=== PATIENT | male | born 1985 | race Caucasian/White ===

== ENCOUNTER 2016-12-04 18:43 | Emergency (ER) | payer SELFPAY ==
[~2016-12-04 18:43] MED LIST: DOLO10TA PO
[2016-12-04 18:45] VITALS: BP 162/100; PULSE 69; RESP 14; TEMP 98.1; O2SAT 96
[2016-12-04] MEDS ORDERED: CEPH-460 PO (20:07)
[2016-12-04] MEDS ORDERED: DICL50TA3 PO (20:07)
[2016-12-04] MEDS ORDERED: BACT800T5 PO (20:07)
--- NOTE | 2016-12-04 20:13 | PD ---
HPI Chief Complaint: Skin Problem Time Seen by Provider: 20:08 Travel History International Travel<30 days: No Contact w/Intl Traveler<30days: No Traveled to known affect area: No History of Present Illness HPI 31-year-old white male presents to emergency department with complains of a painful rash in his left groin which has been draining over last few days. He also goes on to state that he's been having pain in his right lower mandible where he had a broken tooth. He feels that he is developing abscess. He denies any fever or chills. No nausea vomiting. No abdominal pain. No dysuria or frequency. He denies any history of rashes in the past or abscess. He states that the rash in the groin started off as a few small pimples with whiteheads on them. They have subsequently open and draining. PFSH Past Medical History Narrative Medical Opiate dependence, suicide gesture Immunizations Current: Yes Tetanus Vaccination: < 5 Years Past Surgical History Surgical History: No Previous Surgery Social History Alcohol Use: Yes Tobacco Use: Yes Allergies-Medications (Allergen,Severity, Reaction): Coded Allergies: No Known Allergies (Unverified , 12/04/16) Reported Meds & Prescriptions Reported Meds & Active Scripts Active Diclofenac Sodium DR (Diclofenac Sodium) 50 Mg Tabdr 50 Mg PO TID Bactrim DS (Sulfamethoxazole-Trimethoprim) 800-160 Mg Tab 1 Tab PO BID Keflex (Cephalexin) 500 Mg Cap 500 Mg PO Q6H Review of Systems Except as stated in HPI: all other systems reviewed are Neg Physical Exam Narrative GENERAL: This is a well-nourished, well-developed patient, in no apparent distress. SKIN: Patient has an area of erythema, tenderness with open draining superficial abscess to the left pubic region. There is no fluctuance or pointing. The area measures approximately 3 x 3 cm. HEAD: Atraumatic. Normocephalic. EYES: PERRL, EOMI, no discharge or injection. No scleral icterus. EARS: Clear NOSE: Nasal turbinates appear normal. THROAT: Mucosa pink and moist. Airway patent. The patient has a large dental carry in tooth #29.. Complains of pain to percussion. No facial swelling. NECK: Trachea midline. supple, moves head freely. LUNGS: Clear to auscultation. CV: Regular in rhythm. ABDOMEN: Soft nontender. EXT: No clubbing cyanosis or edema. Data Data Last Documented VS Vital Signs Date Time Temp Pulse Resp B/P Pulse Ox O2 Delivery O2 Flow Rate FiO2 12/04/16 18:45 98.1 69 14 162/100 96 Room Air MDM Medical Decision Making Medical Screen Exam Complete: Yes Emergency Medical Condition: Yes Medical Record Reviewed: Yes Differential Diagnosis MDM: High Differential diagnoses: Abscess, folliculitis, cellulitis, lymphangitis, abrasion, contact dermatitis, dental caries, dental abscess Narrative Course The patient is given Keflex 500 mg by mouth, Anaprox DS, by mouth and Bactrim DS by mouth. This is left groin abscess, dental abscess Diagnosis Primary Impression: Abscess of left groin Additional Impression: Dental abscess Patient Instructions: General Instructions Additional Instructions: Rest. Elevation. Warm compresses. Daily wound care with soap, water and Neosporin. Saltwater gargles. Mcbee oil on cotton balls. Medications as directed. follow-up with a dentist as soon as possible. Follow-up with a primary care doctor in one week. Return to the ER for any problems. Med/Other Pt SpecificInfo: Prescription(s) given, Wound Care Scripts Diclofenac Sodium DR 50 Mg Tabdr50 Mg PO TID #21 TAB Prov:Alexis Balderrama MD 12/04/16 Sulfamethoxazole-Trimethoprim (Bactrim DS)800-160 Mg Tab1 Tab PO BID #20 TAB Prov:Alexis Balderrama MD 12/04/16 Cephalexin (Keflex)500 Mg Gnb181 Mg PO Q6H #40 CAP Prov:Alxeis Balderrama MD 12/04/16 Disposition: 01 DISCHARGE HOME Condition: Stable Parish Swenson Dec 04, 2016 20:13
[2016-12-04] MEDS ORDERED: NAPROXEN SODIUM 550 MG TAB PO ONE (20:30)
[2016-12-04] MEDS ORDERED: SULFAMETHOXAZOLE-TRIMETHOPRIM DS 800-160 MG TAB PO ONE (20:30)
[2016-12-04] MEDS ORDERED: CEPHALEXIN MONOHYDRATE 500 MG CAP PO ONE (20:30)
== END 2016-12-04 20:51 | disposition home or self-care (01) ==
LOC: NEPB 18:43
DX: L02.214 Cutaneous abscess of groin (principal); K04.7 Periapical abscess without sinus; Z72.0 Tobacco use
CPT/HCPCS: 99283

== ENCOUNTER 2016-12-30 19:32 | Emergency (ER) | payer SELFPAY ==
[~2016-12-30 19:32] MED LIST changes: +BACT800T5 PO; +CEPH-460 PO; +DICL50TA3 PO; -DOLO10TA PO
[2016-12-30 19:37] VITALS: BP 163/100; PULSE 107; RESP 18; TEMP 97.4; O2SAT 96
[2016-12-30 19:40] VITALS: PULSE 95; RESP 16; O2SAT 96
--- NOTE | 2016-12-30 19:42 | PD ---
HPI Chief Complaint: overdose Time Seen by Provider: 19:38 Travel History International Travel<30 days: No Contact w/Intl Traveler<30days: No History of Present Illness HPI Patient is a 31-year-old male with history of heroin IV drug abuse here with complaint of overdose. Patient states that he injected approximately $20 worth of heroin into his hand. Shortly thereafter friends found him altered and called EMS. EMS noted patient to be GCS 3, hypoventilating with pinpoint pupils. He was given 2 mg Narcan IM with improvement of his mental status is GCS 15. Patient states that he accidentally injected too much heroin. This is not a suicide attempt and he does not feel sad or depressed. Admits to having 2 beers this evening, otherwise denies any other coingestions. Patient's only complaint at this time is that he feels cold and requests water. [facility] Past Medical History Medical History: Denies Significant Hx Diminished Hearing: No Immunizations Current: Yes Social History Alcohol Use: Yes Tobacco Use: Yes Substance Use: Yes (IV drug abuse, opioids) Allergies-Medications (Allergen,Severity, Reaction): Coded Allergies: No Known Allergies (Unverified , 12/30/16) Reported Meds & Prescriptions Reported Meds & Active Scripts Active Review of Systems Except as stated in HPI: all other systems reviewed are Neg Physical Exam Narrative GENERAL: male appearing older than stated age in no acute distress SKIN: Warm and dry. Tract knight of varying ages on the veins of the dorsal hands bilaterally. HEAD: Atraumatic. Normocephalic. EYES: Pupils equal and round. No scleral icterus. No injection or drainage. ENT: No nasal bleeding or discharge. Mucous membranes pink and moist. NECK: Supple CARDIOVASCULAR: Borderline tachycardia with heart rate in the 90s to 100 100s, regular rhythm. No murmur appreciated. RESPIRATORY: No accessory muscle use. Clear to auscultation. Breath sounds equal bilaterally. GASTROINTESTINAL: Abdomen soft, non-tender, nondistended. MUSCULOSKELETAL: Moves all extremities normally NEUROLOGICAL: Awake and alert. GCS 15. No clonus or rigidity. Motor grossly within normal limits. Normal speech. PSYCHIATRIC: insight and judgment poor. Denies suicidal ideation, homicidal ideation, delusions or hallucinations. Data Data Last Documented VS Vital Signs Date Time Temp Pulse Resp B/P Pulse Ox O2 Delivery O2 Flow Rate FiO2 2/4/17 20:33 102 16 150/96 96 Nasal Cannula 3 12/30/16 19:37 97.4 Orders Iv Access Insert/Monitor (12/30/16 19:38) Ecg Monitoring (12/30/16 19:38) Oximetry (12/30/16 19:38) Sodium Chloride 0.9% Flush (Ns Flush) (12/30/16 19:45) MDM Medical Decision Making Medical Screen Exam Complete: Yes Emergency Medical Condition: Yes Medical Record Reviewed: Yes Differential Diagnosis 31-year-old male here with complaint of accidental heroin overdose, during recreational use. Presentation is classic for opioid overdose. He does admit to coingestions with alcohol tonight, but clinically is not intoxicated. Patient has had rapid reversal of his mentation with Narcan. Differential includes alcohol intoxication, electrolyte abnormality, and polysubstance abuse. Narrative Course Patient was placed on monitor. IV had been established per EMS. Blood glucose normal. EMS. Patient was monitored throughout his ED stay for 3 hours with no change in his mental status and was discharged home. Diagnosis Primary Impression: Heroin overdose Qualified Code: T40.1X1A - Heroin overdose, accidental or unintentional, initial encounter Referrals: [facility] for appointment Additional Instructions: Stop using drugs. Seek outpatient counseling for your substance abuse. Med/Other Pt SpecificInfo: No Change to Meds Disposition: 01 DISCHARGE HOME Condition: Stable Aarti Jett MD Dec 30, 2016 19:42
[2016-12-30] MEDS ORDERED: SODIUM CHLORIDE 0.9% FLUSH 5 ML FLUSH IVF PRN (19:45)
[2016-12-30 20:33] VITALS: BP 150/96; PULSE 102; RESP 16; O2SAT 96
== END 2016-12-30 23:07 | disposition home or self-care (01) ==
LOC: NEPE 19:32
DX: T40.1X1A Poisoning by heroin, accidental (unintentional), initial encounter (principal)

== ENCOUNTER 2017-07-12 23:45 | Emergency (ER) | payer SELFPAY ==
[~2017-07-12] VITALS: Ht 182.9 cm; Wt 100.0 kg
[2017-07-12 23:48] VITALS: BP 136/92; PULSE 117; RESP 18; TEMP 99
--- NOTE | 2017-07-12 23:57 | PD ---
HPI Chief Complaint: OD/ Ingestion Time Seen by Provider: 23:53 Travel History International Travel<30 days: No Contact w/Intl Traveler<30days: No Traveled to known affect area: No History of Present Illness HPI WAS AT A [facility] AND USED (SNORTED) HEROIN TONIGHT, APPARENTLY FRIENDS NOTICED THAT HE WAS NOT RESPONDING NORMAL AND TOOK HIM TO BATHROOM WHERE THEY SPLASHED HIM WITH WATER AND PATIENT "CAME TO" EMS ON SCENE DID NOT ADMINISTER NARCAN, PT WAS A/O X4, AND SPEAKING /ACTING NORMALLY PFSH Past Medical History Diminished Hearing: No Immunizations Current: Yes Social History Alcohol Use: Yes Tobacco Use: Yes Substance Use: Yes (IV drug abuse, opioids) Allergies-Medications (Allergen,Severity, Reaction): Coded Allergies: No Known Allergies (Unverified , 12/30/16) Reported Meds & Prescriptions Reported Meds & Active Scripts Active Review of Systems Except as stated in HPI: all other systems reviewed are Neg Physical Exam Narrative GENERAL: SKIN: Warm and dry. HEAD: Atraumatic. Normocephalic. EYES: Pupils equal and round. No scleral icterus. No injection or drainage. ENT: No nasal bleeding or discharge. Mucous membranes pink and moist. NECK: Trachea midline. No JVD. CARDIOVASCULAR: Regular rate and rhythm. RESPIRATORY: No accessory muscle use. Clear to auscultation. Breath sounds equal bilaterally. GASTROINTESTINAL: Abdomen soft, non-tender, nondistended. MUSCULOSKELETAL: Extremities without clubbing, cyanosis, or edema. No obvious deformities. NEUROLOGICAL: Awake and alert. No obvious cranial nerve deficits. Motor grossly within normal limits. Five out of 5 muscle strength in the arms and legs. Normal speech. PSYCHIATRIC: Appropriate mood and affect; insight and judgment normal. Data Data Last Documented VS Vital Signs Date Time Temp Pulse Resp B/P Pulse Ox O2 Delivery O2 Flow Rate FiO2 07/13/17 00:03 117 16 136/92 116 18 146/91 07/12/17 23:48 99.0 Orders Electrocardiogram (07/12/17 23:53) Chest, Single Ap (07/12/17 23:53) Orthostatic Vital Signs (07/12/17 23:53) Blood Glucose (07/12/17 23:53) MDM Medical Decision Making Medical Screen Exam Complete: Yes Emergency Medical Condition: Yes Medical Record Reviewed: Yes Interpretation(s) MILD SINUS TACH 110, NL INTERVALS, NO STEMI PATTERN Differential Diagnosis RECREATIONAL DRUG USE V HYPOGLYCEMIA V ARDS V DEHYDRATION Narrative Course NL ACCUCHECK, NEG ORTHOSTATIC, CXR NL, PATIENT WAS ADVISED TO AVOID DRUG USE Diagnosis Primary Impression: HEROIN USE Patient Instructions: General Instructions, Opioid Overdose (ED) Disposition: 01 DISCHARGE HOME Condition: Stable Nahid Mitchell MD Jul 12, 2017 23:57
[2017-07-13 00:03] VITALS: BP_SYST 136; BP_SYST 146; BP_DIAS 91; BP_DIAS 92; RESP 16; RESP 18
--- NOTE | 2017-07-13 00:48 | RADRPT ---
EXAM DATE/TIME: 07/13/2017 00:12 [facility] COMPARISON: No previous studies available for comparison. INDICATIONS : Chest pain and fluttering. MEDICAL HISTORY : None. SURGICAL HISTORY : None. ENCOUNTER: Initial ACUITY: 1 day PAIN SCORE: 8/10 LOCATION: Bilateral chest FINDINGS: A single view of the chest demonstrates the lungs to be symmetrically aerated without evidence of mas s, infiltrate or effusion. The cardiomediastinal contours are unremarkable. Osseous structures are intact. CONCLUSION: No acute cardiopulmonary process. Nolan Marcos MD on July 13, 2017 at 0:46 Board Certified Radiologist. This report was verified electronically.
[2017-07-13 01:57] VITALS: BP 120/82
--- NOTE | 2017-07-13 09:18 | EKG ---
Date Performed: 07/12/2017 Time Performed: 23:59:04 PTAGE: 32 years EKG: SINUS TACHYCARDIA POSSIBLE LEFT ATRIAL ENLARGEMENT ABNORMAL RHYTHM ECG Compared to prior tr acing no significant change PREVIOUS TRACING : 03/13/2015 21.27 DOCTOR: Sae Rasmussen Interpretating Date/Time 07/13/2017 09:16:42
== END 2017-07-13 01:59 | disposition home or self-care (01) ==
LOC: NEPE 23:45
DX: F11.90 Opioid use, unspecified, uncomplicated (principal); R00.0 Tachycardia, unspecified; R94.31 Abnormal electrocardiogram [ECG] [EKG]; Z72.0 Tobacco use
CPT/HCPCS: 71010; 93005

== ENCOUNTER 2017-11-02 12:30 | Emergency (ER) | payer SELFPAY ==
[~2017-11-02] VITALS: Ht 182.9 cm; Wt 104.0 kg
[2017-11-02 12:48] VITALS: BP 139/82; PULSE 92; RESP 16; TEMP 98.2; O2SAT 91
[2017-11-02] MEDS ORDERED: SODIUM CHLORIDE 0.9% FLUSH 10 ML FLUSH IVF PRN (13:00)
--- NOTE | 2017-11-02 13:04 | PD ---
HPI Chief Complaint: OD/ Ingestion Time Seen by Provider: 12:50 Travel History International Travel<30 days: No Contact w/Intl Traveler<30days: No Traveled to known affect area: No History of Present Illness HPI 32-year-old male presents to the emergency department after an overdose that occurred just prior to arrival. Patient states that he used IV heroin and had an unintentional overdose. EVAC gave this patient a dose of 0.8mg Narcan and Zofran which woke him up. States he used IV heroin approximately 10 AM this morning and does not know how long he was out. Currently patient denies fever or chills. Patient does feel "out of it". States he thinks he is urinary tract infection because his urine is orange. He denies dysuria or any other symptoms. Denies fever, chills, chest pain, shortness of breath, abdominal pain. Patient denies chronic medical issues or medication use. Denies any other illicit drugs at this time. PFSH Past Medical History Diminished Hearing: No Immunizations Current: Yes Social History Alcohol Use: Yes Tobacco Use: Yes Substance Use: Yes (IV drug abuse, opioids) Allergies-Medications (Allergen,Severity, Reaction): Coded Allergies: No Known Allergies (Unverified , 12/30/16) Reported Meds & Prescriptions Reported Meds & Active Scripts Active Review of Systems Except as stated in HPI: all other systems reviewed are Neg Physical Exam Narrative GENERAL: Well-developed well-nourished in mild distress SKIN: Focused skin assessment warm/dry. HEAD: Atraumatic. Normocephalic. EYES: Pupils equal and round. No scleral icterus. No injection or drainage. ENT: No nasal bleeding or discharge. Mucous membranes pink and moist. NECK: Trachea midline. No JVD. CARDIOVASCULAR: Regular rate and rhythm. No murmur appreciated. RESPIRATORY: No accessory muscle use. Clear to auscultation. Breath sounds equal bilaterally. GASTROINTESTINAL: Abdomen soft, non-tender, nondistended. Hepatic and splenic margins not palpable. MUSCULOSKELETAL: No obvious deformities. No clubbing. No cyanosis. No edema. NEUROLOGICAL: Awake and alert. No obvious cranial nerve deficits. Motor grossly within normal limits. Normal speech. PSYCHIATRIC: Appropriate mood and affect; insight and judgment normal. Data Data Last Documented VS Vital Signs Date Time Temp Pulse Resp B/P (MAP) Pulse Ox O2 Delivery O2 Flow Rate FiO2 12/8/17 15:54 11/02/17 15:53 71 16 100 Room Air 11/02/17 13:19 2.00 11/02/17 12:48 98.2 Orders Orders Electrocardiogram (11/02/17 12:48) Basic Metabolic Panel (Bmp) (11/02/17 12:48) Complete Blood Count With Diff (11/02/17 12:48) Iv Access Insert/Monitor (11/02/17 12:48) Ecg Monitoring (11/02/17 12:48) Oximetry (11/02/17 12:48) Sodium Chloride 0.9% Flush (Ns Flush) (11/02/17 13:00) Drug Screen, Random Urine (11/02/17 12:48) Alcohol (Ethanol) (11/02/17 12:48) Chest, Single Ap (11/02/17 ) Urinalysis - C+S If Indicated (11/02/17 12:59) Ed Discharge Order (11/02/17 15:17) Electrocardiogram (11/02/17 13:27) Labs Laboratory Tests Test 11/02/17 12:50 11/02/17 14:20 White Blood Count 5.2 TH/MM3 Red Blood Count 3.80 MIL/MM3 Hemoglobin 13.2 GM/DL Hematocrit 39.1 % Mean Corpuscular Volume 102.7 FL Mean Corpuscular Hemoglobin 34.8 PG Mean Corpuscular Hemoglobin Concent 33.9 % Red Cell Distribution Width 14.4 % Platelet Count 176 TH/MM3 Mean Platelet Volume 8.0 FL Neutrophils (%) (Auto) 44.6 % Lymphocytes (%) (Auto) 36.4 % Monocytes (%) (Auto) 13.2 % Eosinophils (%) (Auto) 5.4 % Basophils (%) (Auto) 0.4 % Neutrophils # (Auto) 2.3 TH/MM3 Lymphocytes # (Auto) 1.9 TH/MM3 Monocytes # (Auto) 0.7 TH/MM3 Eosinophils # (Auto) 0.3 TH/MM3 Basophils # (Auto) 0.0 TH/MM3 CBC Comment DIFF FINAL Differential Comment Blood Urea Nitrogen 12 MG/DL Creatinine 0.75 MG/DL Random Glucose 118 MG/DL Calcium Level 8.4 MG/DL Sodium Level 139 MEQ/L Potassium Level 3.4 MEQ/L Chloride Level 105 MEQ/L Carbon Dioxide Level 26.0 MEQ/L Anion Gap 8 MEQ/L Estimat Glomerular Filtration Rate 120 ML/MIN Ethyl Alcohol Level 35 MG/DL Urine Color YELLOW Urine Turbidity CLEAR Urine pH 6.0 Urine Specific [place] 1.021 Urine Protein 30 mg/dL Urine Glucose (UA) NEG mg/dL Urine Ketones NEG mg/dL Urine Occult Blood NEG Urine Nitrite NEG Urine Bilirubin NEG Urine Urobilinogen 2.0 MG/DL Urine Leukocyte Esterase NEG Urine WBC 2 /hpf Urine Squamous Epithelial Cells <1 /hpf Urine Amorphous Sediment RARE Urine Hyaline Casts 22 /lpf Microscopic Urinalysis Comment CULT NOT INDICATED Urine Opiates Screen POS Urine Barbiturates Screen NEG Urine Amphetamines Screen POS Urine Benzodiazepines Screen POS Urine Cocaine Screen POS Urine Cannabinoids Screen NEG MDM Medical Decision Making Medical Screen Exam Complete: Yes Emergency Medical Condition: Yes Differential Diagnosis Heroin overdose, polysubstance abuse, drug use, alcohol use Narrative Course 32-year-old male presents to the emergency department after an overdose that occurred just prior to arrival. Patient states that he used IV heroin and had an unintentional overdose. [facility] gave this patient a dose of Narcan and Zofran which woke him up. States he used IV heroin approximately 10 AM this morning and does not know how long he was out. Currently patient denies fever or chills. Patient does feel "out of it". States he thinks he is urinary tract infection because his urine is orange. He denies dysuria or any other symptoms. Denies fever, chills, chest pain, shortness of breath, abdominal pain. Patient denies chronic medical issues or medication use. Denies any other illicit drugs at this time. Vital signs stable Chest x-ray- atelectasis consistent with patient's recent overdose. Labs stable- evidence of polysubstance abuse. Last Impressions Chest X-Ray 11/02/17 0000 Signed Impressions: Service Date/Time: Thursday, November 02, 2017 13:48 - CONCLUSION: Underinflation and mild atelectasis at the lung bases. Otherwise, no acute finding is identified. Angel Arizmendi MD Laboratory Tests Test 11/02/17 12:50 11/02/17 14:20 White Blood Count 5.2 TH/MM3 Red Blood Count 3.80 MIL/MM3 Hemoglobin 13.2 GM/DL Hematocrit 39.1 % Mean Corpuscular Volume 102.7 FL Mean Corpuscular Hemoglobin 34.8 PG Mean Corpuscular Hemoglobin Concent 33.9 % Red Cell Distribution Width 14.4 % Platelet Count 176 TH/MM3 Mean Platelet Volume 8.0 FL Neutrophils (%) (Auto) 44.6 % Lymphocytes (%) (Auto) 36.4 % Monocytes (%) (Auto) 13.2 % Eosinophils (%) (Auto) 5.4 % Basophils (%) (Auto) 0.4 % Neutrophils # (Auto) 2.3 TH/MM3 Lymphocytes # (Auto) 1.9 TH/MM3 Monocytes # (Auto) 0.7 TH/MM3 Eosinophils # (Auto) 0.3 TH/MM3 Basophils # (Auto) 0.0 TH/MM3 CBC Comment DIFF FINAL Differential Comment Blood Urea Nitrogen 12 MG/DL Creatinine 0.75 MG/DL Random Glucose 118 MG/DL Calcium Level 8.4 MG/DL Sodium Level 139 MEQ/L Potassium Level 3.4 MEQ/L Chloride Level 105 MEQ/L Carbon Dioxide Level 26.0 MEQ/L Anion Gap 8 MEQ/L Estimat Glomerular Filtration Rate 120 ML/MIN Ethyl Alcohol Level 35 MG/DL Urine Color YELLOW Urine Turbidity CLEAR Urine pH 6.0 Urine Specific [place] 1.021 Urine Protein 30 mg/dL Urine Glucose (UA) NEG mg/dL Urine Ketones NEG mg/dL Urine Occult Blood NEG Urine Nitrite NEG Urine Bilirubin NEG Urine Urobilinogen 2.0 MG/DL Urine Leukocyte Esterase NEG Urine WBC 2 /hpf Urine Squamous Epithelial Cells <1 /hpf Urine Amorphous Sediment RARE Urine Hyaline Casts 22 /lpf Microscopic Urinalysis Comment CULT NOT INDICATED Urine Opiates Screen POS Urine Barbiturates Screen NEG Urine Amphetamines Screen POS Urine Benzodiazepines Screen POS Urine Cocaine Screen POS Urine Cannabinoids Screen NEG Patient is stable and ready to go home. Patient does have support at home. Patient requests a bus pass. Advised the patient not work for the next 2 days and wrote a work note for him. I also recommended she follow [facility] Ortega. Advised to follow-up with his primary care physician. Return to the emergency department for worsening or persistent symptoms. Diagnosis Primary Impression: Heroin overdose Qualified Codes: T40.1X1A - Poisoning by heroin, accidental (unintentional), initial encounter Additional Impression: Alcohol use Referrals: [facility] Departure Forms: Tests/Procedures, Work Release Enter return to work date: Oct 28, 2017 Additional Instructions: Avoid heroin and other illicit drugs as they may cause . Follow-up with a primary care physician within 2-3 days. Consider rehabilitation again for your dangerous habit. Disposition: 01 DISCHARGE HOME Condition: Stable Xiomara Ch Nov 02, 2017 13:04
[2017-11-02 13:06] LABS: AUTOMATED NEUTROPHIL # 2.3 TH/MM3 (1.8-7.7); BASOPHIL % 0.4 % (0.0-2.0); EOSINOPHIL # 0.3 TH/MM3 (0-0.4); EOSINOPHIL % 5.4 % (0.0-4.0); HEMATOCRIT 39.1 % (39.0-51.0); HEMO FLAGS DIFF FINAL; LYMPH % 36.4 % (9.0-44.0); LYMPHOCYTE # 1.9 TH/MM3 (1.0-4.8); MEAN CELL VOLUME 102.7 FL (80.0-100.0); MEAN CORPUSCULAR HEMOGLOBIN 34.8 PG (27.0-34.0); MEAN CORPUSCULAR HGB CONC 33.9 % (32.0-36.0); MONO % 13.2 % (0.0-8.0); NEUT % 44.6 % (16.0-70.0); PLATELET COUNT 176 TH/MM3 (150-450); RED CELL DISTRIBUTION WIDTH 14.4 % (11.6-17.2); WHITE BLOOD COUNT 5.2 TH/MM3 (4.0-11.0)
[2017-11-02 13:19] VITALS: O2SAT 94
[2017-11-02 13:26] LABS: POTASSIUM 3.4 MEQ/L (3.5-5.1)
--- NOTE | 2017-11-02 14:27 | RADRPT ---
EXAM DATE/TIME: 11/02/2017 13:48 [facility] COMPARISON: CHEST SINGLE AP, July 13, 2017, 0:12. INDICATIONS : Cough, congestion. MEDICAL HISTORY : Hypertension. Smoker. SURGICAL HISTORY : None. ENCOUNTER: Initial ACUITY: 1 week PAIN SCORE: 0/10 LOCATION: Bilateral chest FINDINGS: Portable AP views of the chest demonstrate a normal-sized cardiac silhouette. Lungs are mildly underi nflated with linear opacity at the lung bases. No effusion, consolidation, or pneumothorax identified . Bones and soft tissues demonstrate no acute finding. CONCLUSION: Underinflation and mild atelectasis at the lung bases. Otherwise, no acute finding is identified. Angel Arizmendi MD on November 02, 2017 at 14:24 Board Certified Radiologist. This report was verified electronically.
[2017-11-02 14:56] LABS: BLOOD, URINE NEG (NEG); COMMENT (UR) CULT NOT INDICATED; CULTURE IF INDICATED CULT NOT INDICATED; GLUCOSE,URINE NEG (NEG); HYALINE CAST, URINE 22 /lpf (RARE); KETONE, URINE NEG (NEG); NITRITE,URINE NEG (NEG); SQUAMOUS EPITHELIAL CELL URINE <1 /hpf (0-5); URINE COLOR YELLOW (YELLW/STRAW)
[2017-11-02 15:53] VITALS: BP 143/72; PULSE 71; RESP 16; O2SAT 100
--- NOTE | 2017-11-04 13:12 | EKG ---
Date Performed: 11/02/2017 Time Performed: 12:49:47 PTAGE: 32 years EKG: Sinus rhythm NORMAL ECG Compared to PREVIOUS TRACING , heart rate is slower, otherwise no signficant change. PREVIOUS TRACING 07/12/2017 23.59.04 DOCTOR: Abelino Rodriguez Interpretating Date/Time 11/04/2017 13:10:54
--- NOTE | 2017-11-04 13:13 | EKG ---
Date Performed: 11/02/2017 Time Performed: 13:27:19 PTAGE: 32 years EKG: Sinus rhythm NORMAL ECG Since PREVIOUS TRACING , no significant change noted PREVIOUS TRACIN07/12/2017 23.59 DOCTOR: Abelino Rodriguez Interpretating Date/Time 11/04/2017 13:11:27
== END 2017-11-02 15:56 | disposition home or self-care (01) ==
LOC: NEPC 12:30
DX: T40.1X1A Poisoning by heroin, accidental (unintentional), initial encounter (principal); J98.11 Atelectasis; Z72.0 Tobacco use
CPT/HCPCS: 71010; 80048; 80307; 81001; 85025; 93005; 99285

== ENCOUNTER 2018-01-18 07:29 | Emergency (ER) | payer SELFPAY ==
[~2018-01-18] VITALS: Ht 182.9 cm; Wt 90.5 kg
[2018-01-18 07:29] VITALS: BP 171/104; PULSE 119; RESP 20; TEMP 99.1; O2SAT 98
[2018-01-18 07:39] VITALS: PULSE 107
--- NOTE | 2018-01-18 07:55 | PD ---
HPI Chief Complaint: Skin Problem Time Seen by Provider: 07:54 Travel History International Travel<30 days: No Contact w/Intl Traveler<30days: No Traveled to known affect area: No History of Present Illness HPI 32-year-old male presents to emergency department complaining of an abscess to the back of his left wrist/base of hand for the past few days. Says he was taking down the ceiling boards the other day and thinks something bit him causing the abscess. He has history of IV drug use but denies current IV drug use. Denies fevers. Reports nausea without vomiting. Denies paresthesias, loss of sensation, decreased range of motion, decreased strength to the affected extremity. Has not taken any medications to alleviate his symptoms. Has tried warm compresses to the area. Rates pain 9/10. Describes it as a throbbing/burning sensation. No known relieving factors. Unknown tetanus status. No primary care provider. No known allergies. Denies significant past medical history. Has no other medical complaints. No other modifying factors or associated signs and symptoms. PFSH Past Medical History Diminished Hearing: No Immunizations Current: Yes ?: Not Social History Alcohol Use: Yes (OCC) Tobacco Use: Yes (1 PPD) Substance Use: No (DENIES) Allergies-Medications (Allergen,Severity, Reaction): Coded Allergies: No Known Allergies (Unverified , 12/30/16) Reported Meds & Prescriptions Reported Meds & Active Scripts Active Ibuprofen 800 Mg Tab 800 Mg PO Q6HR PRN Bactrim DS (Sulfamethoxazole-Trimethoprim) 800-160 Mg Tab 1 Tab PO BID 10 Days Review of Systems Except as stated in HPI: all other systems reviewed are Neg Physical Exam Narrative GENERAL: Well-nourished, well-developed male patient, in no acute distress; afebrile, nontoxic-appearing SKIN: There is an indurated area to the dorsal aspect of the left wrist/base of hand area which measures about 2 cm in diameter. It is fluctuant but there is no pointing or drainage. There is a zone of inflammation around it but no lymphangitis. Left upper extremity is supple and nontender 2+ radial pulse and sensory intact. Fingers with full range of motion and wrist with full range of motion. HEAD: Atraumatic. Normocephalic. EYES: Pupils equal and round. No scleral icterus. No injection or drainage. ENT: Mucosa pink and moist. Airway patent. NECK: Trachea midline. CARDIOVASCULAR: Regular rate. RESPIRATORY: No accessory muscle use. GASTROINTESTINAL: Flat. MUSCULOSKELETAL: No obvious deformities. No clubbing. No cyanosis. No edema. NEUROLOGICAL: Awake and alert. Oriented 3. No obvious cranial nerve deficits. Motor grossly within normal limits. Normal speech. PSYCHIATRIC: Appropriate mood and affect; insight and judgment normal. Data Data Last Documented VS Vital Signs Date Time Temp Pulse Resp B/P (MAP) Pulse Ox O2 Delivery O2 Flow Rate FiO2 01/18/18 09:09 01/18/18 09:08 90 16 98 Room Air 01/18/18 08:14 98.4 Orders Orders Wound Culture And Gram Stain (01/18/18 07:57) Tetanus/Diphtheria Tox Adult (Tetanus/Di (01/18/18 08:00) Ibuprofen (Motrin) (01/18/18 08:00) Ondansetron Odt (Zofran Odt) (01/18/18 08:00) Lidocaine 1% Inj (Xylocaine 1% Inj) (01/18/18 08:00) Sulfamet-Trimeth Ds 800-160 Mg (Bactrim (01/18/18 08:45) Ed Discharge Order (01/18/18 08:40) MDM Medical Decision Making Medical Screen Exam Complete: Yes Emergency Medical Condition: Yes Medical Record Reviewed: Yes Differential Diagnosis Abscess, folliculitis, cellulitis Narrative Course 32-year-old male with abscess to the dorsal aspect of his left wrist/base of hand area. Has history of IV drug use in the past, but denies current IV drug use. Patient is afebrile and nontoxic-appearing. Reports nausea without vomiting. Denies fevers. See my procedure note for incision and drainage. Ibuprofen and Zofran administered in the ER. Instructed patient to return to the emergency department in 48 hours for packing removal. Bactrim and ibuprofen prescribed for home. Instructed patient to follow up with primary care provider. Patient verbalizes understanding and agreement with treatment plan. Patient is medically cleared and stable for discharge. Discussed reasons to return to the emergency department. Patient agrees with treatment plan. The patients vital signs are stable and the patient is stable for outpatient follow-up and treatment. Patient discharged home, stable and in no acute distress. Procedures Procedure Narrative INCISION AND DRAINAGE OF ABSCESS: The area was prepped and was sterilely draped. A subcutaneous wheal of 1 % Xylocaine with a total number 2 mL was used to anesthetize the area properly. A number 11 scalpel was used to make a 1 -cm incision across the area of the abscess. The abscess was drained, complex loculations were broken down, and irrigated with normal saline. Cultures were obtained. Quarter inch iodoform packing was placed in the wound. Sterile dressing applied. Patient advised to have packing removed in two days. Diagnosis Primary Impression: Abscess of wrist Referrals: [facility] Primary Care Physician Patient Instructions: Abscess (ED), Abscess Follow-up (ED), Abscess Incision and Drainage (DC), General Instructions Additional Instructions: Complete full course of antibiotics Warm compresses to the affected area Keep area clean and dry Ibuprofen or Tylenol as directed and as needed for pain and inflammation Return to the emergency department in 48 hours for packing removal and abscess recheck Follow-up with primary care provider Return to emergency department immediately with worsening of symptoms Med/Other Pt SpecificInfo: Prescription(s) given Scripts Ibuprofen (Ibuprofen) 800 Mg Tab 800 MG PO Q6HR Y for PAIN, #30 TAB 0 Refills Prov: Calista Umaña 01/18/18 Sulfamethoxazole-Trimethoprim (Bactrim DS) 800-160 Mg Tab 1 TAB PO BID for Infection for 10 Days, #20 TAB 0 Refills Prov: Calista Umaña 01/18/18 Disposition: 01 DISCHARGE HOME Condition: Stable Calista Umaña Jan 18, 2018 07:55
[2018-01-18] MEDS ORDERED: IBUPROFEN 800 MG TAB PO ONE (08:00)
[2018-01-18] MEDS ORDERED: ONDANSETRON ODT 4 MG TAB PO ONE (08:00)
[2018-01-18] MEDS ORDERED: LIDOCAINE HCL 1% 20 ML VIAL INFIL ONE (08:00)
[2018-01-18] MEDS ORDERED: TETANUS/DIPHTHERIA TOXOID ADULT 0.5 ML VIAL IM ONE (08:00)
[2018-01-18] MEDS ORDERED: BACT800T5 PO (08:05)
[2018-01-18] MEDS ORDERED: IBUP1TAB7 PO (08:05)
[2018-01-18 08:14] VITALS: TEMP 98.4
[2018-01-18] MEDS ORDERED: SULFAMETHOXAZOLE-TRIMETHOPRIM DS 800-160 MG TAB PO ONE (08:45)
[2018-01-18 09:08] VITALS: BP 160/90; PULSE 90; RESP 16; O2SAT 98
== END 2018-01-18 09:10 | disposition home or self-care (01) ==
LOC: NEPD 07:29
DX: L02.414 Cutaneous abscess of left upper limb (principal); B95.4 Other streptococcus as the cause of diseases classified elsewhere; F17.200 Nicotine dependence, unspecified, uncomplicated; Z23 Encounter for immunization
CPT/HCPCS: 10061; 87070; 87077; 87186; 90714

== ENCOUNTER 2018-03-25 02:55 | Emergency (ER) | payer SELFPAY ==
[~2018-03-25] VITALS: Ht 182.9 cm; Wt 91.0 kg
[~2018-03-25 02:55] MED LIST changes: -CEPH-460 PO; -DICL50TA3 PO; +IBUP1TAB7 PO
[2018-03-25 02:58] VITALS: BP 152/89; PULSE 113; RESP 18; TEMP 98.4; O2SAT 95
--- NOTE | 2018-03-25 03:09 | PD ---
HPI Chief Complaint: Skin Problem Time Seen by Provider: 03:07 Travel History International Travel<30 days: No Contact w/Intl Traveler<30days: No Traveled to known affect area: No History of Present Illness HPI Patient comes in for a left arm infection, that has popped and is draining spontaneously on its own. He states has been going on for 2 days. Patient admits to IVDA shooting heroin... Of note he denies taking any black tar heroin. Patient comes in because he is very concerned about the foul smell of the wound drainage. He states that the wound opened up just last night and the drainage was very foul-smelling and asked what concerned him enough to come in. Patient states that he agrees to stay for IV antibiotic treatment No known drug allergy Patient does have a past medical history of a wrist reduction as well as heroin abuse, the patient is also smoker [facility] Past Medical History Medical History: Denies Significant Hx Diminished Hearing: No Immunizations Current: Yes Tetanus Vaccination: < 5 Years Influenza Vaccination: No Social History Alcohol Use: Yes (OCC) Tobacco Use: Yes (1 PPD) Substance Use: Yes (herion) Allergies-Medications (Allergen,Severity, Reaction): Coded Allergies: No Known Allergies (Unverified Allergy, Unknown, 03/25/18) Reported Meds & Prescriptions Reported Meds & Active Scripts Active Ibuprofen 800 Mg Tab 800 Mg PO Q6HR PRN Bactrim DS (Sulfamethoxazole-Trimethoprim) 800-160 Mg Tab 1 Tab PO BID 10 Days Review of Systems General / Constitutional: No: Fever Eyes: No: Visual changes HENT: No: Headaches Cardiovascular: No: Chest Pain or Discomfort Respiratory: No: Shortness of Breath Gastrointestinal: No: Abdominal Pain Genitourinary: No: Dysuria Musculoskeletal: No: Pain Skin: Positive Lesions Neurologic: No: Weakness Psychiatric: No: Depression Endocrine: No: Polydipsia Hematologic/Lymphatic: No: Easy Bruising Physical Exam Narrative GENERAL: SKIN: Warm and dry. On the ventral aspect of the left mid forearm there is about a 5 cm ulcerated wound, foul-smelling with yellowish-green discharge. There is surrounding cellulitis and edema extending down to the wrist and proximal dorsum of the hand, no evidence of any palpable crepitus HEAD: Atraumatic. Normocephalic. EYES: Pupils equal and round. No scleral icterus. No injection or drainage. ENT: No nasal bleeding or discharge. Mucous membranes pink and moist. NECK: Trachea midline. No JVD. CARDIOVASCULAR: Regular rate and rhythm. No murmur RESPIRATORY: No accessory muscle use. Clear to auscultation. Breath sounds equal bilaterally. GASTROINTESTINAL: Abdomen soft, non-tender, nondistended. MUSCULOSKELETAL: Extremities without clubbing, cyanosis, or edema. No obvious deformities. NEUROLOGICAL: Awake and alert. No obvious cranial nerve deficits. Motor grossly within normal limits. Five out of 5 muscle strength in the arms and legs. Normal speech. PSYCHIATRIC: Appropriate mood and affect; insight and judgment normal. Data Data Last Documented VS Vital Signs Date Time Temp Pulse Resp B/P (MAP) Pulse Ox O2 Delivery O2 Flow Rate FiO2 03/25/18 10:52 03/25/18 08:54 92 22 97 Room Air 03/25/18 02:58 98.4 Orders Orders Complete Blood Count With Diff (03/25/18 03:21) Comprehensive Metabolic Panel (03/25/18 03:21) Lactic Acid Sepsis Protocol (03/25/18 03:21) Blood Culture (03/25/18 03:21) Wound Culture And Gram Stain (03/25/18 03:21) Chest, Single Ap (03/25/18 03:21) Ecg Monitoring (03/25/18 03:21) Iv Access Insert/Monitor (03/25/18 03:21) Oximetry (03/25/18 03:21) Aztreonam Inj (Azactam Inj) (03/25/18 03:21) Clindamycin Inj (Cleocin Inj) (03/25/18 03:21) Vancomycin Inj (Vancomycin Inj) (03/25/18 03:21) Us Arm Venous Doppler (03/25/18 03:25) Forearm (2vws) (03/25/18 03:25) Asp: Iv Antibiotics Admit Only (Asp Crit (03/25/18 06:00) Pharmacy Information ([facility] [place] Pharmacy Info (03/25/18 06:00) Dalbavancin Inj (Dalvance Inj) (03/25/18 05:57) Asp: Location Of [facility] Admin (Asp Crit: (03/25/18 08:00) Asp: Does Not Meet Inpt Admit (Asp Crit: (03/25/18 08:00) Asp:No Reaction To Dalbav/Vanc (Asp Crit (03/25/18 08:00) Ed Discharge Order (03/25/18 09:02) Labs Laboratory Tests Test 03/25/18 04:35 White Blood Count 7.8 TH/MM3 Red Blood Count 3.77 MIL/MM3 Hemoglobin 12.8 GM/DL Hematocrit 38.5 % Mean Corpuscular Volume 102.2 FL Mean Corpuscular Hemoglobin 34.1 PG Mean Corpuscular Hemoglobin Concent 33.3 % Red Cell Distribution Width 13.6 % Platelet Count 275 TH/MM3 Mean Platelet Volume 8.2 FL Neutrophils (%) (Auto) 39.6 % Lymphocytes (%) (Auto) 39.7 % Monocytes (%) (Auto) 14.4 % Eosinophils (%) (Auto) 5.2 % Basophils (%) (Auto) 1.1 % Neutrophils # (Auto) 3.1 TH/MM3 Lymphocytes # (Auto) 3.1 TH/MM3 Monocytes # (Auto) 1.1 TH/MM3 Eosinophils # (Auto) 0.4 TH/MM3 Basophils # (Auto) 0.1 TH/MM3 CBC Comment DIFF FINAL Differential Comment Blood Urea Nitrogen 12 MG/DL Creatinine 0.97 MG/DL Random Glucose 94 MG/DL Total Protein 7.9 GM/DL Albumin 3.3 GM/DL Calcium Level 9.0 MG/DL Alkaline Phosphatase 132 U/L Aspartate Amino Transf (AST/SGOT) 22 U/L Alanine Aminotransferase (ALT/SGPT) 25 U/L Total Bilirubin 0.2 MG/DL Sodium Level 141 MEQ/L Potassium Level 3.7 MEQ/L Chloride Level 105 MEQ/L Carbon Dioxide Level 28.2 MEQ/L Anion Gap 8 MEQ/L Estimat Glomerular Filtration Rate 89 ML/MIN Lactic Acid Level 1.7 mmol/L [facility] Medical Decision Making Medical Screen Exam Complete: Yes Emergency Medical Condition: Yes Medical Record Reviewed: Yes Differential Diagnosis Osteomyelitis versus DVT versus cellulitis versus abscess versus lymphangitis Narrative Course Patient has no leukocytosis, no left shift, normal platelet count, H&H is stable at 12.8/38.5 Electrolyte are within normal limits, normal kidney normal lactic acid normal liver enzymes Chest x-ray was read by the radiologist as no acute cardiopulmonary process Forearm x-ray read by radiologist as no associated osseous involvement, original cortex is all intact, and assess there is only soft tissue defect in the mid forearm Ultrasound shows soft tissue edema in the mid anterior forearm without any DVT this was read by the radiologist Patient received 2 antibiotics including Vanco. After discussion with medicine service the patient was also given DALVANCE, since the patient's only indication for admission is the cellulitis. Diagnosis Primary Impression: Left mid forearm infected ulcer with cellulitis Patient Instructions: Cellulitis (ED), General Instructions Additional Instructions: Return in 1 week for wound check You were given a special antibiotic but only has to be given once. Disposition: 01 DISCHARGE HOME Condition: Stable Nahid Mitchell MD Mar 25, 2018 03:09
[2018-03-25] MEDS ORDERED: CLINDAMYCIN INJ 900 MG in SODIUM CHLORIDE 0.9% INJ 100 ML IV STA (03:21)
[2018-03-25] MEDS ORDERED: AZTREONAM INJ 2,000 MG in SODIUM CHLORIDE 0.9% INJ 100 ML IV STA (03:21)
[2018-03-25] MEDS ORDERED: VANCOMYCIN INJ 1,000 MG in SODIUM CHLOR 0.9% 250 ML INJ 250 ML IV STA (03:21)
--- NOTE | 2018-03-25 04:09 | RADRPT ---
EXAM DATE/TIME: 03/25/2018 03:26 [facility] COMPARISON: CHEST SINGLE AP, November 02, 2017, 13:48. INDICATIONS : IVDA- Shortness of breath. MEDICAL HISTORY : None. SURGICAL HISTORY : None. ENCOUNTER: Initial ACUITY: 1 day PAIN SCORE: 0/10 LOCATION: Bilateral chest FINDINGS: A single view of the chest demonstrates the lungs to be symmetrically aerated without evidence of mas s, infiltrate or effusion. The cardiomediastinal contours are unremarkable. Osseous structures are intact with a mild S-shaped scoliosis of the thoracolumbar spine. CONCLUSION: No acute cardiopulmonary process. Nolan Marcos MD on March 25, 2018 at 4:07 Board Certified Radiologist. This report was verified electronically.
--- NOTE | 2018-03-25 04:29 | RADRPT ---
EXAM DATE/TIME: 03/25/2018 03:29 [facility] COMPARISON: No previous studies available for comparison. INDICATIONS : IV Drug use- Infection in forearm. Rule out osteo. MEDICAL HISTORY : None. SURGICAL HISTORY : None. ENCOUNTER: Initial ACUITY: 1 week PAIN SCORE: 10/10 LOCATION: Left Mid forearm. FINDINGS: Two view examination of the left forearm demonstrates possible soft tissue defect in the mid volar an d ulnar forearm. Small flecks of radiopaque density in the apparent soft tissue defect could represen t some dystrophic calcification. No metallic foreign body. Subjacent osseous structures are all intac t CONCLUSION: 1. Suspect a soft tissue defect in the mid forearm as above. 2. No associated osseous involvement. Regional cortex is all intact. Nolan Marcos MD on March 25, 2018 at 4:24 Board Certified Radiologist. This report was verified electronically.
[2018-03-25 04:58] LABS: AUTOMATED NEUTROPHIL # 3.1 TH/MM3 (1.8-7.7); BASOPHIL # 0.1 TH/MM3 (0-0.2); BASOPHIL % 1.1 % (0.0-2.0); EOSINOPHIL # 0.4 TH/MM3 (0-0.4); EOSINOPHIL % 5.2 % (0.0-4.0); HEMATOCRIT 38.5 % (39.0-51.0); HEMOGLOBIN 12.8 GM/DL (13.0-17.0); LYMPH % 39.7 % (9.0-44.0); LYMPHOCYTE # 3.1 TH/MM3 (1.0-4.8); MEAN CELL VOLUME 102.2 FL (80.0-100.0); MEAN CORPUSCULAR HEMOGLOBIN 34.1 PG (27.0-34.0); MEAN CORPUSCULAR HGB CONC 33.3 % (32.0-36.0); MEAN PLATELET VOLUME 8.2 FL (7.0-11.0); MONO % 14.4 % (0.0-8.0); MONOCYTE # 1.1 TH/MM3 (0-0.9); NEUT % 39.6 % (16.0-70.0); PLATELET COUNT 275 TH/MM3 (150-450); RED BLOOD COUNT 3.77 MIL/MM3 (4.50-5.90); RED CELL DISTRIBUTION WIDTH 13.6 % (11.6-17.2); WHITE BLOOD COUNT 7.8 TH/MM3 (4.0-11.0)
[2018-03-25 05:11] LABS: ALBUMIN 3.3 GM/DL (3.4-5.0); ALT (GPT) 25 U/L (12-78); AST (GOT) 22 U/L (15-37); BICARBONATE 28.2 MEQ/L (21.0-32.0); BLOOD UREA NITROGEN 12 MG/DL (7-18); CHLORIDE 105 MEQ/L (98-107); CREATININE 0.97 MG/DL (0.60-1.30); GLOMERULAR FILTRATION RATE 89 ML/MIN (>89); GLUCOSE,RANDOM 94 MG/DL (74-106); SODIUM (NA) 141 MEQ/L (136-145)
[2018-03-25 05:13] LABS: ALKALINE PHOSPHATASE 132 U/L (45-117); TOTAL BILIRUBIN ADULT 0.2 MG/DL (0.2-1.0); TOTAL PROTEIN 7.9 GM/DL (6.4-8.2)
--- NOTE | 2018-03-25 05:32 | RADRPT ---
EXAM DATE/TIME: 03/25/2018 04:43 [facility] COMPARISON: No previous studies available for comparison. INDICATIONS : Left arm swelling. MEDICAL HISTORY : Substance use. Tobacco use. SURGICAL HISTORY : Left wrist reduction. ENCOUNTER: Initial ACUITY: 2 day PAIN SCORE: 8/10 LOCATION: Left arm. FINDINGS: There is spontaneous flow documented in the brachial, basilic, cephalic, axillary, and subclavian vei ns. The vessels are compressible and augmentation response is documented. No filling defects are se en. The flow is phasic with respiration. Direction of flow in the jugular vein is caudal. Focal soft tissue edema is identified in the mid anterior forearm CONCLUSION: 1. Soft tissue edema in the mid anterior forearm. 2. No DVT. Nolan Marcos MD on March 25, 2018 at 5:28 Board Certified Radiologist. This report was verified electronically.
[2018-03-25 05:55] VITALS: BP 146/88; PULSE 96; RESP 20; O2SAT 94
[2018-03-25] MEDS ORDERED: DALBAVANCIN INJ 1,500 MG in DEXTROSE 5% IN WATE 500 ML INJ 500 ML IV STA ×2 (05:57)
[2018-03-25] MEDS ORDERED: PHARMACY INFORMATION XX ONE (06:00)
[2018-03-25] MEDS ORDERED: ASP: Only reason for admit - IV antibiotics OTHER ONE (06:00)
[2018-03-25] MEDS ORDERED: ASP: No known hypersensitivity to Vanco, Telavancin, Dalbavancin OTHER ONE (08:00)
[2018-03-25] MEDS ORDERED: ASP: Does not meet inpatient admission criteria OTHER ONE (08:00)
[2018-03-25] MEDS ORDERED: ASP: Location of Dalbavancin administration OTHER ONE (08:00)
[2018-03-25 08:54] VITALS: BP 164/96; PULSE 92; RESP 22; O2SAT 97
== END 2018-03-25 11:11 | disposition home or self-care (01) ==
LOC: NEPE 02:55
DX: L98.499 Non-pressure chronic ulcer of skin of other sites with unspecified severity (principal); L03.114 Cellulitis of left upper limb; F17.200 Nicotine dependence, unspecified, uncomplicated; F11.10 Opioid abuse, uncomplicated; M79.89 Other specified soft tissue disorders
CPT/HCPCS: 71045; 73090; 80053; 83605; 85025; 86403; 87040; 87070; 87077; 87186; 93971; 96365; 96367; 96368; 99285; J0875; J3370; J7050; J7060